=== PATIENT | female | born 1990 | race Caucasian/White ===

== ENCOUNTER 2017-12-11 20:30 | Emergency (ER) | payer MEDICARE, OTHER ==
[~2017-12-11] VITALS: Ht 162.6 cm; Wt 111.1 kg
[2017-12-11] MEDS ORDERED: METOCLOPRAMIDE HCL 10 MG/2ML VIAL IV ONE (21:00)
[2017-12-11] MEDS ORDERED: SODIUM CHLORIDE 0.9% 1000ML 1,000 ML IV STA (21:00)
--- NOTE | 2017-12-11 22:07 | Diagnostic Imaging Report ---
EXAMINATION: Head CT without contrast. HISTORY:Headache, nausea and vomiting, history of ventricular shunt. COMPARISON:None. TECHNIQUE: Multidetector axial images were obtained from the foramen magnum to the vertex without contrast. The images were reconstructed using brain and bone algorithms. Thin section brain images were reformatted into coronal and sagittal planes. Intravenous contrast: None IMAGE QUALITY: Acceptable. FINDINGS: Skull/scalp: Expected postoperative changes from prior right parietal july hole for ventricular catheter placement. Parenchyma: Focal hypodensity in the right parietal region, along the ventricular catheter possibly represents gliosis. 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 No acute hemorrhage or mass. No acute major vascular territorial infarct. Arteries: No density suggestive of thrombosis. Dural sinuses: No abnormal density suggestive of thrombosis. Ventricles: Right parietal ventricular catheter, tip crosses the midline and is in the body of left lateral ventricle, appears to be within septum possibly represents cavum septum pellucidum. Abandoned ventricular catheter inferior and parallel to the right parietal ventricular catheter with its tip in the atrium of right lateral ventricle. 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 Asymmetric moderate prominence of right temporal horn of lateral ventricle may represent an entrapped ventricle in appropriate setting. No overt obstructive type hydrocephalus. Extra-axial spaces: Prominence of bilateral frontoparietal extra-axial space may be related to volume loss. Brain volume: Moderate cerebral volume loss, advanced for patient's given age. Craniocervical junction: No mass, Chiari malformation, or basilar invagination. Sella: No mass. Paranasal/mastoid sinuses: Opacification and sclerosis of bilateral mastoid air cells. IMPRESSION: 1. Expected postoperative changes from prior right parietal ventricular catheter placement with colpocephaly and nonspecific moderate asymmetric dilatation of right temporal horn of lateral ventricle may represent entrapment. 2. Moderate predominantly bilateral frontoparietal cerebral volume loss, is advanced for patient's given age. 3. Corpus callosum dysgenesis, comparison with prior studies if made available will be helpful, if not can be further evaluated with MRI of the brain with and without contrast. Signed by: Dr. Joan Virk M.D. on 12/11/2017 10:04 PM
[2017-12-12 00:08] LABS: BASOPHILS % 0.3 % (0.0-1.0); EOSINOPHILS # (AUTO) 0.2 (0.0-0.4); HEMATOCRIT 41.6 % (34.2-44.1); HEMOGLOBIN 13.2 g/dL (12.0-16.0); LYMPHOCYTES # (AUTO) 4.8 (1.0-3.2); MEAN CORPUSCULAR HEMOGLOBIN 28.6 pg (28-32); MEAN CORPUSCULAR HGB CONC 31.7 g/dL (31-35); MONOCYTES # (AUTO) 0.9 (0.2-0.8); MONOCYTES % 5.5 % (4.4-11.3); NEUTROPHILS # (AUTO) 9.5 (2.1-6.9); NEUTROPHILS % 61.9 % (38.7-80.0); PLATELET COUNT 257 x10e3/uL (140-360); RED BLOOD COUNT 4.62 x10e6/uL (3.6-5.1); RED CELL DISTRIBUTION WIDTH 14.3 % (11.7-14.4)
[2017-12-12 00:11] LABS: INR 0.9; PROTHROMBIN TIME 12.6 seconds (11.9-14.5)
[2017-12-12 00:12] LABS: PARTIAL THROMBOPLASTIN TIME 27.6 seconds (23.8-35.5)
[2017-12-12] MEDS ORDERED: METFORMIN HCL500 MG PO (00:12)
[2017-12-12] MEDS ORDERED: CLONAZEPAM0.5 MG PO (00:12)
[2017-12-12] MEDS ORDERED: CYMBALTA30 MG PO (00:13)
[2017-12-12] MEDS ORDERED: ETODOLAC500 MG PO (00:13)
[2017-12-12] MEDS ORDERED: QUETIAPINE FUM100 MG PO (00:14)
[2017-12-12] MEDS ORDERED: GABAPENTIN300 MG PO (00:14)
[2017-12-12] MEDS ORDERED: CARVEDILOL3.125 MG PO (00:15)
[2017-12-12] MEDS ORDERED: FAMOTIDINE20 MG PO (00:15)
[2017-12-12] MEDS ORDERED: NORETHINDRONE0.35 MG PO (00:16)
[2017-12-12 00:18] LABS: ALANINE AMINOTRANSFERASE 18 IU/L (0-55); ALBUMIN 3.8 g/dL (3.5-5.0); ALKALINE PHOSPHATASE 45 IU/L (40-150); ANION GAP 13.8 mmol/L (8-16); BLOOD UREA NITROGEN 6 mg/dL (7-26); BUN/CREATININE RATIO 7 (6-25); CALCIUM 9.6 mg/dL (8.4-10.2); CARBON DIOXIDE 22 mmol/L (22-29); CHLORIDE 106 mmol/L (98-107); CREATININE, SERUM 0.86 mg/dL (0.57-1.11); EST GLOMERULAR FILTRATION RATE > 60 ML/MIN (60-); GLUCOSE 175 mg/dL (74-118); POTASSIUM 3.8 mmol/L (3.5-5.1); SODIUM 138 mmol/L (136-145)
[2017-12-12] MEDS ORDERED: METOCLOPRAMIDE HCL 10 MG/2ML VIAL ONE (00:23)
== END 2017-12-12 03:06 | disposition short-term general hospital (02) ==
LOC: ER 21:11
DX: T85.01XA Breakdown (mechanical) of ventricular intracranial (communicating) shunt, initial encounter (principal); R51 Headache; I10 Essential (primary) hypertension; E11.9 Type 2 diabetes mellitus without complications; F31.9 Bipolar disorder, unspecified
CPT/HCPCS: 36415; 70450; 80053; 84702; 85025; 85610; 85730; 96374; 99284; J2765